=== PATIENT | male | born 1995 ===

== ENCOUNTER 2023-08-10 18:35 | Emergency (ER) | payer OTHER ==
[2023-08-10 18:53] VITALS: RESP 18
--- NOTE | 2023-08-10 19:06 | ED ---
General Adult HPI - General Chief complaint: Extremity Injury, Upper Stated complaint: Lt arm injury Time Seen by Provider: 08/10/23 18:52 Source: patient, police, RN notes reviewed, old records reviewed Mode of arrival: ambulatory Limitations: language barrier - History of Present Illness Initial comments: 28-year-old male with left arm injury which occurred 3 months ago. Patient speaks Latvian and history is obtained through an glass presser. Apparently he had fallen 3 months ago with pain and deformity to the left elbow. He's been unable to move his arm since that time. He has noted atrophy of the bicep on the left. There was no other injury reported. Patient states he has numbness to the upper arm but is able to feel the lower arm. - Related Data Allergies Allergy/AdvReac Type Severity Reaction Status Date / Time No Known Allergies Allergy Verified 08/10/23 18:44 Review of Systems ROS Statement: Those systems with pertinent positive or pertinent negative responses have been documented in the HPI. ROS Other: All systems not noted in ROS Statement are negative. Past Medical History Past Medical History: No Reported History History of Any Multi-Drug Resistant Organisms: None Reported Past Surgical History: No Surgical Hx Reported Past Psychological History: No Psychological Hx Reported Smoking Status: Current every day smoker Past Alcohol Use History: None Reported Past Drug Use History: None Reported General Exam Limitations: no limitations General appearance: alert, in no apparent distress Head exam: Present: atraumatic, normocephalic Eye exam: Present: normal appearance, PERRL Neck exam: Present: normal inspection. Absent: tenderness, meningismus Respiratory exam: Present: normal lung sounds bilaterally, respiratory distress Cardiovascular Exam: Present: regular rate, normal rhythm GI/Abdominal exam: Present: soft. Absent: distended, tenderness, guarding Extremities exam: Present: other (Deformity of the left elbow chronic appearing. Distal pulses are intact, there is complete loss of muscle mass in the bicep and tricep. Normal range of motion at the elbow.) Course Vital Signs 08/10/23 18:40 Temperature 97.4 F L Pulse Rate 60 Respiratory 18 Rate Blood Pressure 128/73 O2 Sat by Pulse 100 Oximetry Medical Decision Making - Medical Decision Making Was pt. sent in by a medical professional or institution (, PA, PIN INSERTER REGULATOR, urgent care, hospital, or [facility]...) When possible be specific @ -[No] Did you speak to anyone other than the patient for history (EMS, parent, family, police, friend...)? What history was obtained from this source @ -[No] Did you review nursing and triage notes (agree or disagree)? Why? @ -[I reviewed and agree with nursing and triage notes] Were old charts reviewed (outside hosp., previous admission, EMS record, old EKG, old radiological studies, urgent care reports/EKG's, [facility] records)? Report findings @ -[No old charts were reviewed] Differential Diagnosis (chest pain, altered mental status, abdominal pain women, abdominal pain men, vaginal bleeding, weakness, fever, dyspnea, syncope, headache, dizziness, GI bleed, back pain, seizure, CVA, palpatations, mental health, musculoskeletal)? @ -Differential Musculoskeletal Muscular strain, contusion, ligament sprain, fracture, arthritis, septic arthr itis, bursitis, cellulitis, muscle spasm, nerve compression, DVT, arterial occlusion, herpes zoster, electrolyte abnormality, tumor.... This is not meant to be in all inclusive list EKG interpreted by me (3pts min.). @ -[As above] X-rays interpreted by me (1pt min.). @ X-ray of the elbow shows complete fusion of the humerus to the radius and the ulna CT interpreted by me (1pt min.). @ -[None done] U/S interpreted by me (1pt. min.). @ -[None done] What testing was considered but not performed or refused? (CT, X-rays, U/S, labs)? Why? @ -[None] What meds were considered but not given or refused? Why? @ -[None] Did you discuss the management of the patient with other professionals (professionals i.e. , PA, PIN INSERTER REGULATOR, lab, RT, psych nurse, social security specialist, industrial commercial groundskeeper, teacher, parcel post officer, catalytic case operator)? Give summary @ -[No] Was smoking cessation discussed for >3mins.? @ -[No] Was critical care preformed (if so, how long)? @ -[No] Were there social determinants of health that impacted care today? How? (Homelessness, low income, unemployed, alcoholism, drug addiction, transportation, low edu. Level, literacy, decrease access to med. care, [facility], rehab)? @ -[No] Was there de-escalation of care discussed even if they declined (Discuss DNR or withdrawal of care, Hospice)? DNR status @ -[No] What co-morbidities impacted this encounter? (DM, HTN, Smoking, COPD, CAD, Cancer, CVA, ARF, Chemo, Hep., AIDS, mental health diagnosis, sleep apnea, morbid obesity)? @ -[None] Was patient admitted / discharged? Hospital course, mention meds given and route, prescriptions, significant lab abnormalities, going to OR and other pertinent info. @ -20-year-old male with left elbow deformity from an injury which occurred 3 months ago. There is no significant pain. Distal pulses are intact. He has atrophy of the bicep and tricep. No range of motion at the elbow. X-ray confirms fused prior fracture. I did discuss case with Dr. Bruner covering for orthopedics, no recommendations at this time, patient may require elbow replacement at a much later age. He should follow-up with orthopedics at some point but there is no need for urgent follow-up at this time. Undiagnosed new problem with uncertain prognosis? @ -[No] Drug Therapy requiring intensive monitoring for toxicity (Heparin, Nitro, Insulin, Cardizem)? @ -[No] Were any procedures done? @ -[No] Diagnosis/symptom? @ -Elbow fusion Acute, or Chronic, or Acute on Chronic? @ -[chronic Uncomplicated (without systemic symptoms) or Complicated (systemic symptoms)? @ -[default] Side effects of treatment? @ -[No] Exacerbation, Progression, or Severe Exacerbation? @ -[No] Poses a threat to life or bodily function? How? (Chest pain, [place], [place], pneumonia, PE, COPD, DKA, ARF, appy, cholecystitis, CVA, Diverticulitis, Homicidal, Sanchez icidal, threat to staff... and all critical care pts) @ -[No] Disposition Clinical Impression: Closed fracture of left elbow with malunion Disposition: HOME SELF-CARE Instructions (If sedation given, give patient instructions): Arm Fracture in Adults (ED) Is patient prescribed a controlled substance at d/c from ED?: No Referrals: None,Stated [Primary Care Provider] - 1-2 days Fritz Bruner MD [STAFF PHYSICIAN] - 1-2 days Time of Disposition: 19:36
--- NOTE | 2023-08-10 19:30 | XR ---
EXAMINATION TYPE: XR elbow complete LT DATE OF EXAM: 08/10/2023 7:16 PM CLINICAL INDICATION:Male, 28 years old with history of fall 3 mo ago; [facility] COMPARISON: None TECHNIQUE: XR elbow complete LT; elbow was examined in AP, lateral, and oblique projections. FINDINGS/IMPRESSION: No evidence of acute fracture. The elbow appears fused including the radius and ulna as well as the h umerus. No opaque foreign bodies.
--- NOTE | 2023-08-10 19:31 | XR ---
EXAMINATION TYPE: XR shoulder complete LT DATE OF EXAM: 08/10/2023 7:16 PM CLINICAL INDICATION:Male, 28 years old with history of fall 3 mo ago; [facility] COMPARISON: None TECHNIQUE: XR shoulder complete LT; shoulder was examined in AP, internally rotated and scapular Y p rojections. FINDINGS: No evidence of acute osseous pathology, joint dislocation, or soft tissue swelling. The remaining por tions of the visualized chest are unremarkable. IMPRESSION: No acute osseous pathology.
[2023-08-10 20:15] VITALS: BP 122/68; PULSE 62; TEMP 98.2
== END 2023-08-10 20:04 | disposition home or self-care (01) ==
LOC: EDBD → EC 18:35
DX: S42.402A Unspecified fracture of lower end of left humerus, initial encounter for closed fracture (principal); F17.200 Nicotine dependence, unspecified, uncomplicated; X58.XXXA Exposure to other specified factors, initial encounter
CPT/HCPCS: 99283